=== PATIENT | male | born 1960 | race Caucasian/White ===

== ENCOUNTER 2023-03-17 20:53 | Emergency (ER) | payer SELFPAY ==
[~2023-03-17] VITALS: Ht 170.2 cm; Wt 94.8 kg
[2023-03-17 22:18] VITALS: BP 152/86; PULSE 74; RESP 17; TEMP 97.9; O2SAT 97
[2023-03-18] MEDS ORDERED: KETOROLAC 30 MG/ML VIAL IM ONE (03:20)
[2023-03-18] MEDS ORDERED: ACETAMINOPHEN EXTRA STRENGTH 500 MG TAB PO ONE (03:20)
[2023-03-18] MEDS ORDERED: ACETAMINOPHEN 325 MG TAB ONE (03:30)
[2023-03-18 03:51] LABS: BASOPHILS % (AUTO) 0.4 % (0.0-2.0); EOSINOPHILS # (AUTO) 0.3 K/uL (0-0.4); EOSINOPHILS % (AUTO) 3.1 % (0.0-4.0); HEMATOCRIT 47.5 % (36-52); HEMOGLOBIN 15.9 g/dL (12.0-18.0); LYMPHOCYTES # (AUTO) 2.6 K/uL (2.0-11.5); LYMPHOCYTES % (AUTO) 29.6 % (20.5-51.1); MEAN CORPUSCULAR HEMOGLOBIN 32 pg (27-31); MEAN CORPUSCULAR HGB CONC 33 g/dL (33-37); MONOCYTES # (AUTO) 0.6 K/uL (0.8-1.0); MONOCYTES % (AUTO) 6.4 % (1.7-9.3); NEUTROPHILS # (AUTO) 5.4 K/uL (1.8-7.7); NEUTROPHILS % (AUTO) 60.5 % (42.2-75.2); PLATELET COUNT (AUTO) 276 K/uL (140-450); RED BLOOD CELL COUNT(AUTO) 5.01 MIL/uL (4.20-6.10); RED CELL DISTRIBUTION WIDTH 13.3 % (11.6-13.7); WHITE BLOOD COUNT (AUTO) 8.9 K/uL (4.8-10.8)
[2023-03-18 04:05] LABS: INR 0.97 (0.8-1.2); PARTIAL THROMBOPLASTIN TIME 28.3 secs (22-35.6); PROTHROMBIN TIME 10.2 secs (10.8-13.4)
[2023-03-18 04:09] LABS: ALANINE AMINOTRANSFERASE 36 U/L (12-78); ALKALINE PHOSPHATASE 114 U/L (50-136); ANION GAP 14.5 (8-16); ASPARTATE AMINOTRANSFERASE 14 U/L (15-37); CALCIUM 9.2 mg/dL (8.5-10.1); CARBON DIOXIDE 27.5 mmol/L (21-32); CHLORIDE 103 mmol/L (98-107); CREATININE 0.9 mg/dL (0.6-1.3); GFR ARICAN-AMERICAN 111 mL/min (>90); GFR NON ARICAN-AMERICAN 91 mL/min (>90); GLUCOSE 107 mg/dL (74-106); SODIUM SERUM 141 mmol/L (136-145); TOTAL BILIRUBIN 0.5 mg/dL (0.0-1.0); UREA NITROGEN, BLOOD 12 mg/dL (7-18)
== END 2023-03-18 05:49 | disposition home or self-care (01) ==
LOC: EDBD 20:53 → MED 20:53
DX: I10 Essential (primary) hypertension (principal); Z79.899 Other long term (current) drug therapy
CPT/HCPCS: 36415; 71045; 80053; 84484; 85025; 85610; 85730; 93005; 96372; 99285; J1885